=== PATIENT | male | born 1970 | race Caucasian/White ===

== ENCOUNTER 2018-08-02 12:11 | Emergency (ER) | payer MEDICAID ==
[2018-08-02 12:14] VITALS: BMI 21.1
[2018-08-02] MEDS ORDERED: Iohexol 240 (50 ml) PO ONE (14:33)
[2018-08-02] MEDS ORDERED: Iohexol 240 (50 ml) ONE (14:51)
[2018-08-02 15:00] LABS: BASO # 0.1 K/uL (0.0-0.2); BASO % 0.8 % (0.0-2.0); EOS % 0.3 % (0.0-4.0); LYMPH # 0.8 K/uL (1.0-4.3); LYMPH % 10.5 % (20.0-40.0); MEAN CORPUSCULAR HEMOGLOBIN 29.1 pg (27.0-31.0); MEAN CORPUSCULAR HGB CONC 33.1 g/dL (33.0-37.0); MEAN PLATELET VOLUME 9.3 fl (7.2-11.7); MONO # 0.9 K/uL (0.0-0.8); NEUT # 6.1 K/uL (1.8-7.0); NEUT % 77.4 % (50.0-75.0); NRBC % 0.1 % (0.0-0.0); RBC 4.47 Mil/uL (4.40-5.90); RED CELL DISTRIBUTION WIDTH 13.3 % (11.5-14.5); WHITE BLOOD COUNT 7.8 K/uL (4.8-10.8)
[2018-08-02 15:14] LABS: ALBUMIN 3.3 g/dL (3.5-5.0); ALT/SGPT 325 U/L (21-72); AST/SGOT 262 U/L (17-59); BLOOD UREA NITROGEN 21 mg/dl (9-20); CALCIUM 8.9 mg/dL (8.4-10.2); GFR NON-AFRICAN AMERICAN > 60
--- NOTE | 2018-08-02 15:35 | ED PDOC ---
HPI: Abdomen Time Seen by Provider: 08/02/18 12:48 Chief Complaint (Nursing): Abdominal Pain Chief Complaint (Provider): right groin pain History Per: Patient History/Exam Limitations: no limitations Onset/Duration Of Symptoms: Days (several weeks) Associated Symptoms: denies: Fever, Chills, Nausea, Vomiting, Diarrhea, Urinary Symptoms Additional Complaint(s): Saurabh Fritz is a 47 year old male, with a past medical history of heroin abuse, who was [place] to the emergency department by [place]. Patient states he used heroin approximately x3 hours prior to arrival. Patient is currently complaining of right groin pain ongoing for several weeks but much worst today. Patient states he has a lump near his testicle. He reports pain is aggravated when he coughs or bends forward. He has not taken anything for pain. He denies any fever, chills, nausea, vomit, diarrhea, dysuria or abdominal pain. No history of hernias, HTN, hyperlipidemia or diabetes. No further medical complaints. PMD: None provided. Past Medical History Reviewed: Historical Data, Nursing Documentation, Vital Signs Vital Signs: Last Vital Signs Temp 98.1 F 08/02/18 12:14 Pulse 84 08/02/18 12:14 Resp 17 08/02/18 12:14 BP 96/61 L 08/02/18 12:14 Pulse Ox 96 08/02/18 12:14 - Medical History PMH: No Chronic Diseases Denies: Hiatal Hernia, HTN - Surgical History Surgical History: No Surg Hx - Family History Family History: States: Unknown Family Hx - Social History Current smoker - smoking cessation education provided: Yes (x3 packs/day since he was 12) Alcohol: None Drugs: Other (IV heroin) - Home Medications Home Medications: Ambulatory Orders Medication Instructions Recorded RX: Ibuprofen [Motrin Tab] 800 mg PO Q6 PRN 7 Days tab 08/02/18 - Allergies Allergies/Adverse Reactions: Allergies Allergy/AdvReac Type Severity Reaction Status Date / Time No Known Allergies Allergy Verified 08/02/18 12:19 Review of Systems ROS Statement: Except As Marked, All Systems Reviewed And Found Negative Constitutional: Negative for: Fever, Chills Gastrointestinal: Negative for: Nausea, Vomiting, Abdominal Pain, Diarrhea Genitourinary Male: Positive for: Other (right groin pain). Negative for: Dysuria Physical Exam - Reviewed Nursing Documentation Reviewed: Yes Vital Signs Reviewed: Yes - Physical Exam Appears: Positive for: Uncomfortable Head Exam: Positive for: ATRAUMATIC, NORMAL INSPECTION, NORMOCEPHALIC Skin: Positive for: Normal Color, Warm, Dry Eye Exam: Positive for: Normal appearance, EOMI, PERRL Neck: Positive for: Normal, Painless ROM Cardiovascular/Chest: Positive for: Regular Rate, Rhythm. Negative for: Murmur Respiratory: Positive for: Normal Breath Sounds. Negative for: Respiratory Distress Gastrointestinal/Abdominal: Positive for: Normal Exam, Soft. Negative for: Ten derness, Guarding, Rebound Male Genital Exam: Positive for: other (Journeyman Carpenter: ED RN Ailin Cloud. 4.5cm nonreducible, nonmobile mass in right groin.). Negative for: inguinal tenderness (No erythema, swelling or pain to palpation of inguinal canal), testicular tenderness (R), testicular tenderness (L) Back: Positive for: Vertebral Tenderness Extremity: Positive for: Normal ROM (upper and lower extremities b/l with flexion and extension at shoulder). Negative for: Deformity Neurologic/Psych: Positive for: Alert, Oriented. Negative for: Motor/Sensory Deficits - Laboratory Results Result Diagrams: 08/02/18 14:50 08/02/18 14:50 Lab Results: Total Bilirubin 0.9 mg/dl (0.2-1.3) 08/02/18 14:50 AST 262 U/L (17-59) H 08/02/18 14:50 ALT 325 U/L (21-72) H 08/02/18 14:50 Alkaline Phosphatase 94 U/L (38-126) 08/02/18 14:50 Total Protein 6.6 G/DL (6.3-8.2) 08/02/18 14:50 Albumin 3.3 g/dL (3.5-5.0) L 08/02/18 14:50 Globulin 3.3 gm/dL (2.2-3.9) 08/02/18 14:50 Albumin/Globulin Ratio 1.0 (1.0-2.1) 08/02/18 14:50 - ECG O2 Sat by Pulse Oximetry: 96 (RA) Pulse Ox Interpretation: Normal Medical Decision Making Medical Decision Making: Time: 12:48 Initial Impression: Inguinal hernia Initial Plan: --Abdomen & Pelvis PO and IV contrast [CT] --CMP --CBC w/ differential --Omnipaque 240 50 ml PO --Urine culture --Urinalysis --Reevaluation 17:07 Abdomen/Pelvis CT FINDINGS: LOWER THORAX: There is airspace consolidation and nodular opacities noted at the right lung base may represent a pneumonia or less likely atelectasis. LIVER: The liver is mildly enlarged. Mild hepatic steatosis is noted. GALLBLADDER AND BILE DUCTS: No evidence of radiodense gallstones or acute cholecystitis. Questionable peric holecystic fluid. PANCREAS: Unremarkable. No mass. No ductal dilatation. SPLEEN: Unremarkable. No splenomegaly. ADRENALS: Unremarkable. KIDNEYS AND URETERS: Unremarkable. No stone or hydronephrosis. BLADDER: Grossly unremarkable. REPRODUCTIVE: Unremarkable. APPENDIX: Unremarkable. BOWEL: Mildly dilated small bowel loops noted in the lower abdomen. Mild diffuse small bowel wall thickening noted. No evidence of high-grade bowel obstruction. The oral contrast reached the transverse colon and proximal descending colon. The stomach is not distended. The proximal small bowel loops are not distended. PERITONEUM: There is questionable trace free fluid in the abdomen and pelvis. No evidence of free air. LYMPH NODES: Unremarkable. No enlarged lymph nodes. VASCULATURE: Unremarkable. No aortic aneurysm. No aortic atherosclerotic calcification or mural plaque present. BONES: No fracture or destructive lesion. OTHER FINDINGS: There is moderate to large size right inguinal hernia contains fluid and extending to the right scrotum. Mild fat stranding noted in the right inguinal hernia. No definite evidence of bowel herniation. IMPRESSION: Moderate to large size right inguinal hernia extending to the scrotal and contains fluid and stranding fat. Mildly dilated distal small bowel loops in the lower abdomen and pelvis associated with mild diffuse wall thickening. No CT evidence of high-grade bowel obstruction or incarcerated bowel. Airspace consolidation and nodular opacities at the right lower lobe suspicious for pneumonia. Please correlate clinically. Questionable trace free fluid in the abdomen and pelvis. 19:20 Upon provider reevaluation patient is feeling better, is medically stable, and requires no further treatment in the ED at this time. Patient will be discharged home. Counseling was provided and all questions were answered regarding diagnos is and need for follow up with clinic. There is agreement to discharge plan. Return if symptoms persist or worsen. ------- Scribe Attestation: Documented by Luis Eduardo Wing, acting as a scribe for Rhina Avalos PA-C. Provider Scribe Attestation: All medical record entries made by the Scribe were at my direction and personally dictated by me. I have reviewed the chart and agree that the record accurately reflects my personal performance of the history, physical exam, medical decision making, and the department course for this patient. I have also personally directed, reviewed, and agree with the discharge instructions and disposition. Disposition - Clinical Impression Clinical Impression: Inguinal hernia - Disposition Referrals: [facility] [Outside] Disposition: Routine/Home Disposition Time: 19:20 Condition: STABLE Additional Instructions: F/u with general surgeon for further evaluation of hernia and need for possible surgery. Take Tylenol or Ibuprofen for pain. Avoid heavy lifting as will worsen your hernia. Prescriptions: RX: Ibuprofen [Motrin Tab] 800 mg PO Q6 PRN 7 Days tab PRN Reason: Pain, Moderate (4-7) Instructions: Groin Hernia (DC) Forms: [employer] (Japanese) Print Language: ARMENIAN
[2018-08-02 15:53] LABS: URINE AMORPHOUS SEDIMENT RARE /ul (<OCC); URINE BILIRUBIN NEGATIVE (NEGATIVE); URINE BLOOD SMALL (NEGATIVE); URINE CLARITY CLOUDY (Clear); URINE COLOR YELLOW (YELLOW); URINE GLUCOSE (UA) NEG (NEGATIVE); URINE LEUKOCYTE ESTERASE NEG Leu/uL (Negative); URINE PROTEIN NEGATIVE (NEGATIVE)
[2018-08-02] MEDS ORDERED: Iohexol 300 100 ML IJ ONE (16:23)
[2018-08-02] MEDS ORDERED: Sodium Chloride 0.9% 50 ML IV ONE (16:24)
--- NOTE | 2018-08-02 17:11 | CT ---
Date of service: 08/02/2018 PROCEDURE: CT Abdomen and Pelvis with Oral contrast. HISTORY: evaluate for stangulated hernia COMPARISON: None. TECHNIQUE: Contiguous axial images of the abdomen and pelvis. Oral contrast was administered. No IV contrast given. Coronal and Sagittal reformats generated. Radiation dose: Total exam DLP = 313.68 mGy-cm. This CT exam was performed using one or more of the following dose reduction techniques: Automated exposure control, adjustment of the mA and/or kV according to patient size, and/or use of iterative reconstruction technique. FINDINGS: LOWER THORAX: There is airspace consolidation and nodular opacities noted at the right lung base may represent a pneumonia or less likely atelectasis. LIVER: The liver is mildly enlarged. Mild hepatic steatosis is noted. GALLBLADDER AND BILE DUCTS: No evidence of radiodense gallstones or acute cholecystitis. Questionable pericholecystic fluid. PANCREAS: Unremarkable. No mass. No ductal dilatation. SPLEEN: Unremarkable. No splenomegaly. ADRENALS: Unremarkable. KIDNEYS AND URETERS: Unremarkable. No stone or hydronephrosis. BLADDER: Grossly unremarkable. REPRODUCTIVE: Unremarkable. APPENDIX: Unremarkable. BOWEL: Mildly dilated small bowel loops noted in the lower abdomen. Mild diffuse small bowel wall thickening noted. No evidence of high-grade bowel obstruction. The oral contrast reached the transverse colon and proximal descending colon. The stomach is not distended. The proximal small bowel loops are not distended. PERITONEUM: There is questionable trace free fluid in the abdomen and pelvis. No evidence of free air. LYMPH NODES: Unremarkable. No enlarged lymph nodes. VASCULATURE: Unremarkable. No aortic aneurysm. No aortic atherosclerotic calcification or mural plaque present. BONES: No fracture or destructive lesion. OTHER FINDINGS: There is moderate to large size right inguinal hernia contains fluid and extending to the right scrotum. Mild fat stranding noted in the right inguinal hernia. No definite evidence of bowel herniation. IMPRESSION: Moderate to large size right inguinal hernia extending to the scrotal and contains fluid and stranding fat. Mildly dilated distal small bowel loops in the lower abdomen and pelvis associated with mild diffuse wall thickening. No CT evidence of high-grade bowel obstruction or incarcerated bowel. Airspace consolidation and nodular opacities at the right lower lobe suspicious for pneumonia. Please correlate clinically. Questionable trace free fluid in the abdomen and pelvis.
[2018-08-02 19:09] VITALS: BP 103/70; PULSE 75; RESP 18; TEMP 98.8
[2018-08-02 19:20] VITALS: O2SAT 96
== END 2018-08-02 19:30 | disposition home or self-care (01) ==
LOC: H.ER 12:11
DX: K40.90 Unilateral inguinal hernia, without obstruction or gangrene, not specified as recurrent (principal)
CPT/HCPCS: 74177; 80053; 81003; 85025; 99285; Q9966; Q9967